=== PATIENT | female | born 1995 | race Caucasian/White ===

== ENCOUNTER 2017-01-09 16:45 | Emergency (ER) | payer OTHER ==
[~2017-01-09] VITALS: Ht 162.6 cm; Wt 51.9 kg
[~2017-01-09 16:45] MED LIST: CLON.5 PO; ZOLO100T PO
[2017-01-09 16:50] VITALS: BP 128/56; PULSE 91; RESP 16; TEMP 98.5; O2SAT 99
[2017-01-09] MEDS ORDERED: SODIUM CHLOR 0.9% 1000 ML INJ 1,000 ML IV SCH (18:28)
[2017-01-09] MEDS ORDERED: SODIUM CHLORIDE 0.9% FLUSH 10 ML FLUSH IV FLUSH PRN (18:30)
[2017-01-09 18:33] VITALS: BP 99/51; PULSE 79; RESP 16; O2SAT 97
--- NOTE | 2017-01-09 18:33 | PD ---
HPI Chief Complaint: abdominal pain Time Seen by Provider: 18:20 Travel History International Travel<30 days: No Contact w/Intl Traveler<30days: No History of Present Illness HPI Patient is a 21-year-old female with history of gastritis who presents to emergency room with complaints of right lower quadrant abdominal pain. Patient reports that her onset of pain was around midnight last night. Patient reports that pain has been constant, reports some nausea with no vomiting with her symptoms. Reports no fevers or chills, denies any constipation or diarrhea. She reports that she last had a bowel movement 2 days ago. Reports no history of ovarian cysts, denies any vaginal discharge or bleeding, denies any urinary urgency or frequency or hematuria. PFSH Past Medical History Anxiety: Yes (PANIC ATTACKS) Diminished Hearing: No Genitourinary: No Neurologic: No Respiratory: No Immunizations Current: Yes Past Surgical History Other Surgery: No Social History Alcohol Use: No Tobacco Use: No Substance Use: No Allergies-Medications (Allergen,Severity, Reaction): Coded Allergies: No Known Allergies (Verified , 08/28/16) Reported Meds & Prescriptions Reported Meds & Active Scripts Active No Active Prescriptions or Reported Medications Review of Systems General / Constitutional: No: Fever, Chills Eyes: No: Visual changes HENT: No: Headaches Cardiovascular: No: Chest Pain or Discomfort Respiratory: No: Shortness of Breath Gastrointestinal: Positive: Nausea, Abdominal Pain, No: Vomiting, Diarrhea, Constipation Genitourinary: No: Urgency, Frequency, Dysuria, Hematuria, Pelvic Pain Musculoskeletal: No: Pain Skin: No Rash Neurologic: No: Weakness Psychiatric: No: Depression Endocrine: No: Polydipsia Hematologic/Lymphatic: No: Easy Bruising Physical Exam Narrative GENERAL: NAD, nontoxic SKIN: Focused skin assessment warm/dry. HEAD: Atraumatic. Normocephalic. EYES: Pupils equal and round. No scleral icterus. No injection or drainage. ENT: No nasal bleeding or discharge. Mucous membranes pink and moist. NECK: Trachea midline. No JVD. CARDIOVASCULAR: Regular rate and rhythm. No murmur appreciated. RESPIRATORY: No accessory muscle use. Clear to auscultation. Breath sounds equal bilaterally. GASTROINTESTINAL: Abdomen soft, increased tenderness to rlq with no rebound or guarding : NO cmt or adnexal tenderness, scant white vaginal discharge MUSCULOSKELETAL: No obvious deformities. No clubbing. No cyanosis. No edema. NEUROLOGICAL: Awake and alert. No obvious cranial nerve deficits. Motor grossly within normal limits. Normal speech. PSYCHIATRIC: Appropriate mood and affect; insight and judgment normal. Data Data Last Documented VS Vital Signs Date Time Temp Pulse Resp B/P Pulse Ox O2 Delivery O2 Flow Rate FiO2 01/09/17 20:29 90 18 101/47 01/09/17 19:34 97.8 99 Room Air Orders Complete Blood Count With Diff (01/09/17 18:28) Comprehensive Metabolic Panel (01/09/17 18:28) Lipase (01/09/17 18:28) Prothrombin Time / Inr (Pt) (01/09/17 18:28) Act Partial Throm Time (Ptt) (01/09/17 18:28) Urinalysis - C+S If Indicated (01/09/17 18:28) Ct Abd/Pel W Iv Contrast(Rout) (01/09/17 18:28) Iv Access Insert/Monitor (01/09/17 18:28) Ecg Monitoring (01/09/17 18:28) Oximetry (01/09/17 18:28) Sodium Chlor 0.9% 1000 Ml Inj (Ns 1000 M (01/09/17 18:28) Sodium Chloride 0.9% Flush (Ns Flush) (01/09/17 18:30) Ed Urine Pregnancytest Poc (01/09/17 18:28) Urine Culture (01/09/17 19:20) Iohexol 350 Inj (Omnipaque 350 Inj) (01/09/17 19:54) Lorazepam Inj (Ativan Inj) (01/09/17 20:00) Ceftriaxone Inj (Rocephin Inj) (01/09/17 20:45) Gc And Chlamydia Pcr (01/09/17 20:34) Wet Prep Profile (01/09/17 20:34) Us Pelvis Comp W Doppler (01/09/17 20:34) Labs Laboratory Tests Test 01/09/17 01/09/17 18:48 19:20 White Blood Count 19.1 TH/MM3 Red Blood Count 5.47 MIL/MM3 Hemoglobin 15.1 GM/DL Hematocrit 45.3 % Mean Corpuscular Volume 82.8 FL Mean Corpuscular Hemoglobin 27.6 PG Mean Corpuscular Hemoglobin 33.3 % Concent Red Cell Distribution Width 12.9 % Platelet Count 279 TH/MM3 Mean Platelet Volume 9.4 FL Neutrophils (%) (Auto) 77.5 % Lymphocytes (%) (Auto) 13.8 % Monocytes (%) (Auto) 5.7 % Eosinophils (%) (Auto) 0.1 % Basophils (%) (Auto) 2.9 % Neutrophils # (Auto) 14.8 TH/MM3 Lymphocytes # (Auto) 2.6 TH/MM3 Monocytes # (Auto) 1.1 TH/MM3 Eosinophils # (Auto) 0.0 TH/MM3 Basophils # (Auto) 0.6 TH/MM3 CBC Comment DIFF FINAL Differential Comment Prothrombin Time 11.0 SEC Prothromb Time International 1.0 RATIO Ratio Activated Partial 21.9 SEC Thromboplast Time Urine Color YELLOW Urine Turbidity CLEAR Urine pH 6.0 Urine Specific [place] 1.015 Urine Protein NEG mg/dL Urine Glucose (UA) NEG mg/dL Urine Ketones 40 mg/dL Urine Occult Blood MOD Urine Nitrite NEG Urine Bilirubin NEG Urine Leukocyte Esterase MOD Urine RBC 15-19 /hpf Urine WBC 20-24 /hpf Urine Squamous Epithelial 6-8 /hpf Cells Urine Bacteria FEW /hpf Microscopic Urinalysis Comment CULTURE INDICATED Sodium Level 141 MEQ/L Potassium Level 3.6 MEQ/L Chloride Level 107 MEQ/L Carbon Dioxide Level 24.4 MEQ/L Anion Gap 10 MEQ/L Blood Urea Nitrogen 12 MG/DL Creatinine 0.96 MG/DL Estimat Glomerular Filtration 73 ML/MIN Rate Random Glucose 82 MG/DL Calcium Level 9.8 MG/DL Total Bilirubin 0.6 MG/DL Aspartate Amino Transf 21 U/L (AST/SGOT) Alanine Aminotransferase 20 U/L (ALT/SGPT) Alkaline Phosphatase 86 U/L Total Protein 8.0 GM/DL Albumin 4.2 GM/DL Lipase 162 U/L MDM Medical Decision Making Medical Screen Exam Complete: Yes Emergency Medical Condition: Yes Interpretation(s) Vital Signs Date Time Temp Pulse Resp B/P Pulse Ox O2 Delivery O2 Flow Rate FiO2 01/09/17 20:29 90 18 101/47 01/09/17 19:34 97.8 88 18 93/42 99 Room Air 01/09/17 18:49 97 01/09/17 18:33 79 16 99/51 97 01/09/17 16:50 98.5 91 16 128/56 99 Room Air Laboratory Tests Test 01/09/17 01/09/17 18:48 19:20 White Blood Count 19.1 TH/MM3 (4.0-11.0) Red Blood Count 5.47 MIL/MM3 (4.00-5.30) Hemoglobin 15.1 GM/DL (11.6-15.3) Hematocrit 45.3 % (35.0-46.0) Mean Corpuscular Volume 82.8 FL (80.0-100.0) Mean Corpuscular Hemoglobin 27.6 PG (27.0-34.0) Mean Corpuscular Hemoglobin 33.3 % Concent (32.0-36.0) Red Cell Distribution Width 12.9 % (11.6-17.2) Platelet Count 279 TH/MM3 (150-450) Mean Platelet Volume 9.4 FL (7.0-11.0) Neutrophils (%) (Auto) 77.5 % (16.0-70.0) Lymphocytes (%) (Auto) 13.8 % (9.0-44.0) Monocytes (%) (Auto) 5.7 % (0.0-8.0) Eosinophils (%) (Auto) 0.1 % (0.0-4.0) Basophils (%) (Auto) 2.9 % (0.0-2.0) Neutrophils # (Auto) 14.8 TH/MM3 (1.8-7.7) Lymphocytes # (Auto) 2.6 TH/MM3 (1.0-4.8) Monocytes # (Auto) 1.1 TH/MM3 (0-0.9) Eosinophils # (Auto) 0.0 TH/MM3 (0-0.4) Basophils # (Auto) 0.6 TH/MM3 (0-0.2) CBC Comment DIFF FINAL Differential Comment Prothrombin Time 11.0 SEC (9.8-11.6) Prothromb Time International 1.0 RATIO Ratio Activated Partial 21.9 SEC Thromboplast Time (24.3-30.1) Urine Color YELLOW (YELLW/STRAW) Urine Turbidity CLEAR (CLEAR) Urine pH 6.0 (5.0-8.5) Urine Specific [place] 1.015 (1.002-1.035) Urine Protein NEG mg/dL (NEG-TRACE) Urine Glucose (UA) NEG mg/dL (NEG) Urine Ketones 40 mg/dL (NEG) Urine Occult Blood MOD (NEG) Urine Nitrite NEG (NEG) Urine Bilirubin NEG (NEG) Urine Leukocyte Esterase MOD (NEG) Urine RBC 15-19 /hpf (0-3) Urine WBC 20-24 /hpf (0-5) Urine Squamous Epithelial 6-8 /hpf (0-5) Cells Urine Bacteria FEW /hpf (NONE) Microscopic Urinalysis Comment CULTURE INDICATED Sodium Level 141 MEQ/L (136-145) Potassium Level 3.6 MEQ/L (3.5-5.1) Chloride Level 107 MEQ/L (98-107) Carbon Dioxide Level 24.4 MEQ/L (21.0-32.0) Anion Gap 10 MEQ/L (5-15) Blood Urea Nitrogen 12 MG/DL (7-18) Creatinine 0.96 MG/DL (0.50-1.00) Estimat Glomerular Filtration 73 ML/MIN (>89) Rate Random Glucose 82 MG/DL (74-106) Calcium Level 9.8 MG/DL (8.5-10.1) Total Bilirubin 0.6 MG/DL (0.2-1.0) Aspartate Amino Transf 21 U/L (15-37) (AST/SGOT) Alanine Aminotransferase 20 U/L (10-53) (ALT/SGPT) Alkaline Phosphatase 86 U/L (45-117) Total Protein 8.0 GM/DL (6.4-8.2) Albumin 4.2 GM/DL (3.4-5.0) Lipase 162 U/L (73-393) Last Impressions Abdomen/Pelvis CT 01/09/17 [id number] Signed Impressions: Service Date/Time: Monday, January 09, 2017 19:40 - CONCLUSION: 1. Appendix not visualized. There is a mild right-sided colonic constipation. 2. Small amount of free fluid in the pelvis with questionable right adnexal cysts and corpus luteum cyst on the left. Claudio Polk MD Differential Diagnosis Differential includes ovarian cyst, ovarian torsion, appendicitis, gastroenteritis, UTI, cervicitis Narrative Course Patient is a 21-year-old female who presents to emergency room with complaints of abdominal pain. Since onset abdominal pain has been since midnight last night. Patient reports no fever or chills with symptoms, reports mild nausea. On exam, patient is tender to right lower quadrant, there is no rebound or guarding. Discussed need for lab work including CT of the abdomen pelvis to rule out appendicitis. Plan to give IV fluids, patient does not require any pain medications at this time. Plan to monitor patient Vital Signs Date Time Temp Pulse Resp B/P Pulse Ox O2 Delivery O2 Flow Rate FiO2 01/09/17 20:29 90 18 101/47 01/09/17 19:34 97.8 88 18 93/42 99 Room Air 01/09/17 18:49 97 01/09/17 18:33 79 16 99/51 97 01/09/17 16:50 98.5 91 16 128/56 99 Room Air Laboratory Tests Test 01/09/17 01/09/17 18:48 19:20 White Blood Count 19.1 TH/MM3 (4.0-11.0) Red Blood Count 5.47 MIL/MM3 (4.00-5.30) Hemoglobin 15.1 GM/DL (11.6-15.3) Hematocrit 45.3 % (35.0-46.0) Mean Corpuscular Volume 82.8 FL (80.0-100.0) Mean Corpuscular Hemoglobin 27.6 PG (27.0-34.0) Mean Corpuscular Hemoglobin 33.3 % Concent (32.0-36.0) Red Cell Distribution Width 12.9 % (11.6-17.2) Platelet Count 279 TH/MM3 (150-450) Mean Platelet Volume 9.4 FL (7.0-11.0) Neutrophils (%) (Auto) 77.5 % (16.0-70.0) Lymphocytes (%) (Auto) 13.8 % (9.0-44.0) Monocytes (%) (Auto) 5.7 % (0.0-8.0) Eosinophils (%) (Auto) 0.1 % (0.0-4.0) Basophils (%) (Auto) 2.9 % (0.0-2.0) Neutrophils # (Auto) 14.8 TH/MM3 (1.8-7.7) Lymphocytes # (Auto) 2.6 TH/MM3 (1.0-4.8) Monocytes # (Auto) 1.1 TH/MM3 (0-0.9) Eosinophils # (Auto) 0.0 TH/MM3 (0-0.4) Basophils # (Auto) 0.6 TH/MM3 (0-0.2) CBC Comment DIFF FINAL Differential Comment Prothrombin Time 11.0 SEC (9.8-11.6) Prothromb Time International 1.0 RATIO Ratio Activated Partial 21.9 SEC Thromboplast Time (24.3-30.1) Urine Color YELLOW (YELLW/STRAW) Urine Turbidity CLEAR (CLEAR) Urine pH 6.0 (5.0-8.5) Urine Specific [place] 1.015 (1.002-1.035) Urine Protein NEG mg/dL (NEG-TRACE) Urine Glucose (UA) NEG mg/dL (NEG) Urine Ketones 40 mg/dL (NEG) Urine Occult Blood MOD (NEG) Urine Nitrite NEG (NEG) Urine Bilirubin NEG (NEG) Urine Leukocyte Esterase MOD (NEG) Urine RBC 15-19 /hpf (0-3) Urine WBC 20-24 /hpf (0-5) Urine Squamous Epithelial 6-8 /hpf (0-5) Cells Urine Bacteria FEW /hpf (NONE) Microscopic Urinalysis Comment CULTURE INDICATED Sodium Level 141 MEQ/L (136-145) Potassium Level 3.6 MEQ/L (3.5-5.1) Chloride Level 107 MEQ/L (98-107) Carbon Dioxide Level 24.4 MEQ/L (21.0-32.0) Anion Gap 10 MEQ/L (5-15) Blood Urea Nitrogen 12 MG/DL (7-18) Creatinine 0.96 MG/DL (0.50-1.00) Estimat Glomerular Filtration 73 ML/MIN (>89) Rate Random Glucose 82 MG/DL (74-106) Calcium Level 9.8 MG/DL (8.5-10.1) Total Bilirubin 0.6 MG/DL (0.2-1.0) Aspartate Amino Transf 21 U/L (15-37) (AST/SGOT) Alanine Aminotransferase 20 U/L (10-53) (ALT/SGPT) Alkaline Phosphatase 86 U/L (45-117) Total Protein 8.0 GM/DL (6.4-8.2) Albumin 4.2 GM/DL (3.4-5.0) Lipase 162 U/L (73-393) Last Impressions Abdomen/Pelvis CT 01/09/17 [id number] Signed Impressions: Service Date/Time: Monday, January 09, 2017 19:40 - CONCLUSION: 1. Appendix not visualized. There is a mild right-sided colonic constipation. 2. Small amount of free fluid in the pelvis with questionable right adnexal cysts and corpus luteum cyst on the left. Claudio Polk MD Patient with a white blood cell count of 19.1, hemoglobin 15.1, hematocrit 45.3 , platelets 279, neutrophil % 77.5 sodium 141, chloride 107, bun 12, cr 0.96, ast 21, alt 20, lipase 162 UA: 40 ketones, mod occult blood, 15-19rbc, wbc 20-24, few bacteria - UC pending patient given IV dose of rocephin for treatment of uti ct of abd/pelvis: right sided colonic constipation - appendix could not be visualized, there is a small amount of free fluid in the pelvis with questionable right sided adnexal cysts and corpus luteum cyst on the left. CT reviewed with Dr. Polk (radiologist) - unable to visualize appendix or structures surrounding it pelvic US ordered to evaluate for ovarian cyst/torsion, will perform pelvic exam to r/o cervicitis. pelvic US: mild free fluid in the pelvis with a 2.8cm complex left ovarian cyst with small follicular cysts right ovary Call made to general surgery to review case, patient can follow up in office. Dr. Sapp does not feel that patient has appendicitis given that appendix could not be visualized and there is no inflamatory changes. Discussed that patient can return to ER if she develops worsening symptoms or fever/chills. She can also follow up in the office on Thursday if pain persist. Shared decision making was made with patient. Discussed with patient her options as I cannot rule out appendicitis. Discussed with patient that she can be observed in the hospital overnight for serial abdominal exams, discussed that if she is feeling better, she can be discharged home with precautions to return to the emergency room should she have return of pain worse develops any fevers or chills, she also follow with Dr. sapp in the office on Thursday. Patient reports that pain is still there but has improved during her ER visit. Patient wishes to be discharged to home with her mother. She will return to the emergency room if she should develop any signs of acute appendicitis, or if she develops any fevers or chills. I did review with patient and her mother in detail signs and symptoms of acute abdomen. She understands when to return to the emergency room. Patient feel comfortable going home today and will return to ER if she develops any symptoms as discussed Diagnosis Primary Impression: Abdominal pain Additional Impression: UTI (urinary tract infection) Admitting Information Admitting Physician Requests: Observation Referrals: Miguel Sapp MD Patient Instructions: General Instructions Departure Forms: Tests/Procedures, Work Release Enter return to work date: Jan 14, 2017 Additional Instructions: Please follow up with all cultures from today Please return to the emergency room should your abdominal pain return or if you develops any fevers or chills or worsening symptoms Please follow-up with general surgery on Thursday Please follow-up with your primary care doctor as soon as possible Return to the emergency room at any time Med/Other Pt SpecificInfo: Prescription(s) given Scripts Nitrofurantoin Monohydrate Macrocrystals (Macrobid)100 Mg [id number] Mg PO BID 10 Days Ref 0 Prov:Cara Mann DO 01/09/17 Disposition: 01 DISCHARGE HOME Condition: Stable Cara Mann DO Jan 09, 2017 18:33
[2017-01-09 18:49] VITALS: O2SAT 97
[2017-01-09 18:55] LABS: AUTOMATED NEUTROPHIL # 14.8 TH/MM3 (1.8-7.7); BASOPHIL # 0.6 TH/MM3 (0-0.2); BASOPHIL % 2.9 % (0.0-2.0); EOSINOPHIL % 0.1 % (0.0-4.0); HEMATOCRIT 45.3 % (35.0-46.0); HEMO FLAGS DIFF FINAL; LYMPH % 13.8 % (9.0-44.0); LYMPHOCYTE # 2.6 TH/MM3 (1.0-4.8); MEAN CELL VOLUME 82.8 FL (80.0-100.0); MEAN CORPUSCULAR HEMOGLOBIN 27.6 PG (27.0-34.0); MEAN CORPUSCULAR HGB CONC 33.3 % (32.0-36.0); MONO % 5.7 % (0.0-8.0); NEUT % 77.5 % (16.0-70.0); PLATELET COUNT 279 TH/MM3 (150-450); RED BLOOD COUNT 5.47 MIL/MM3 (4.00-5.30); RED CELL DISTRIBUTION WIDTH 12.9 % (11.6-17.2); WHITE BLOOD COUNT 19.1 TH/MM3 (4.0-11.0)
[2017-01-09 19:34] VITALS: BP 93/42; PULSE 88; RESP 18; TEMP 97.8; O2SAT 99
[2017-01-09 19:35] LABS: GLUCOSE,URINE NEG (NEG); KETONE, URINE 40 mg/dL (NEG); NITRITE,URINE NEG (NEG)
[2017-01-09 19:44] LABS: BLOOD, URINE MOD (NEG); CHLORIDE 107 MEQ/L (98-107); POTASSIUM 3.6 MEQ/L (3.5-5.1); SODIUM (NA) 141 MEQ/L (136-145)
[2017-01-09 19:45] LABS: RBC, URINE 15-19 /hpf (0-3); URINE COLOR YELLOW (YELLW/STRAW)
[2017-01-09 19:46] LABS: BACTERIA, URINE FEW /hpf; COMMENT (UR) CULTURE INDICATED; CULTURE IF INDICATED CULTURE INDICATED
[2017-01-09 19:48] LABS: ANION GAP 10 MEQ/L (5-15); BICARBONATE 24.4 MEQ/L (21.0-32.0); BLOOD UREA NITROGEN 12 MG/DL (7-18)
[2017-01-09 19:51] LABS: ALT (GPT) 20 U/L (10-53); APTT (PATIENT) 21.9 SEC (24.3-30.1); AST (GOT) 21 U/L (15-37); GLOMERULAR FILTRATION RATE 73 ML/MIN (>89)
[2017-01-09 19:53] LABS: TOTAL BILIRUBIN ADULT 0.6 MG/DL (0.2-1.0)
[2017-01-09 19:54] LABS: ALKALINE PHOSPHATASE 86 U/L (45-117)
[2017-01-09] MEDS ORDERED: IOHEXOL 350 MG/ML 10 ML VIAL (for RAD DIAG) IV ONE (19:54)
[2017-01-09] MEDS ORDERED: LORazepam 2 MG/ML VIAL IV PUSH ONE (20:00)
--- NOTE | 2017-01-09 20:19 | RADRPT ---
EXAM DATE/TIME: 01/09/2017 19:40 [facility] COMPARISON: No previous studies available for comparison. INDICATIONS : Right lower quadrant pain. IV CONTRAST: 95 cc Omnipaque 350 (iohexol) IV ORAL CONTRAST: No oral contrast ingested. RADIATION DOSE: 3.77 CTDIvol (mGy) MEDICAL HISTORY : None SURGICAL HISTORY : None. ENCOUNTER: Initial ACUITY: 1 day PAIN SCALE: 5/10 LOCATION: Right lower quadrant TECHNIQUE: Volumetric scanning of the abdomen and pelvis was performed. Using automated exposure control and ad justment of the mA and/or kV according to patient size, radiation dose was kept as low as reasonably achievable to obtain optimal diagnostic quality images. DICOM format image data is available electro nically for review and comparison. FINDINGS: Lung bases are clear. No acute findings in the liver, spleen, adrenals, kidneys or pancreas. No calci fied gallstones or biliary ductal dilatation. Within the pelvis there is a small amount of free fluid. There is some mild constipation right colon. The appendix is not clearly visualized. There is a probable enhancing corpus luteum cyst in the left adnexal region and probable 1.9 cm cyst right adnexa. Uterus unremarkable on CT. No acute bony abnor mality. CONCLUSION: 1. Appendix not visualized. There is a mild right-sided colonic constipation. 2. Small amount of free fluid in the pelvis with questionable right adnexal cysts and corpus luteum c yst on the left. Claudio Polk MD on January 09, 2017 at 20:13 Board Certified Radiologist. This report was verified electronically.
[2017-01-09 20:29] VITALS: BP 101/47; PULSE 90; RESP 18
[2017-01-09] MEDS ORDERED: cefTRIAXone INJ 1,000 MG in SODIUM CHLORIDE 0.9% INJ 100 ML IV ONE (20:45)
--- NOTE | 2017-01-09 22:57 | RADRPT ---
EXAM DATE/TIME: 01/09/2017 21:56 [facility] COMPARISON: No previous studies available for comparison. INDICATIONS : Pelvic pain. MEDICAL HISTORY : Anxiety. Gastritis. SURGICAL HISTORY : None. ENCOUNTER: Initial ACUITY: 2 days PAIN SCORE: 4/10 LOCATION: Bilateral pelvis. MEASUREMENTS: UTERUS: 7.6 x 5.2 x 3.5 cm ENDOMETRIAL STRIPE: 12 mm RIGHT OVARY: 4.3 x 3.1 x 2.1 cm LEFT OVARY: 5.7 x 2.5 x 1.7 cm FINDINGS: Endometrial stripe measures 12 mm. Uterus otherwise unremarkable. Right ovary within normal limits wi th trace free fluid adjacent to right ovary. Complex cyst left ovary measuring up to 2.8 cm in diamet er. CONCLUSION: 1. Mild free fluid in the pelvis. 2.8 cm complex left ovarian cyst. Small follicular cysts right ovar y. Claudio Polk MD on January 09, 2017 at 22:54 Board Certified Radiologist. This report was verified electronically.
[2017-01-09] MEDS ORDERED: MACR100C2 PO (23:20)
[2017-01-09 23:41] VITALS: BP 107/67; TEMP 98.7
[2017-01-10 11:46] LABS: CHLAMYDIA PCR NOT DETECTED (NOT DETECT); NEISSERIA PCR NOT DETECTED (NOT DETECT)
[2017-01-19] MEDS ORDERED: CLON.5 PO (15:27)
== END 2017-01-09 23:50 | disposition home or self-care (01) ==
LOC: PHED 16:45
DX: N39.0 Urinary tract infection, site not specified (principal); B96.89 Other specified bacterial agents as the cause of diseases classified elsewhere; N83.01 Follicular cyst of right ovary; N83.12 Corpus luteum cyst of left ovary; K59.00 Constipation, unspecified
CPT/HCPCS: 74177; 76856; 80053; 81001; 83690; 84703; 85025; 85610; 85730; 87086; 87210; 87491; 87591; 93975; 96361; 96365; 96375; 99285; J0696; J2060; J7030; Q9967

== ENCOUNTER 2017-01-13 08:08 | Emergency (ER) | payer OTHER ==
[2017-01-13] VITALS (7 sets, daily range): BP systolic 97–117; BP diastolic 49–62; PULSE 56–77; RESP 16; TEMP 98.3; O2SAT 98–100
[~2017-01-13] VITALS: Ht 162.6 cm; Wt 51.7 kg
[~2017-01-13 08:08] MED LIST changes: -CLON.5 PO; +MACR100C2 PO; -ZOLO100T PO
[2017-01-13] MEDS ORDERED: SODIUM CHLOR 0.9% 1000 ML INJ 1,000 ML IV SCH (08:25)
[2017-01-13] MEDS ORDERED: ONDANSETRON HCL 4 MG/2 ML VIAL IVP ONE (08:30)
[2017-01-13] MEDS: MORPHINE SULFATE 4 MG/ML INJ IV PUSH ONE ×2 (08:30→09:01)
--- NOTE | 2017-01-13 08:39 | PD ---
HPI Chief Complaint: Abdominal Pain Time Seen by Provider: 08:20 Travel History International Travel<30 days: No Contact w/Intl Traveler<30days: No History of Present Illness HPI Patient's 21-year-old female who returns to emergency room with complaints of right lower quadrant abdominal pain. Patient was seen by myself on Thursday night , with right lower quadrant abdominal pain. At that time, patient had a CT of abdomen and pelvis which could not identify an appendix, she also had a pelvic ultrasound ordered which showed mild free fluid in the pelvis with a 2.8 cm complex left ovarian cysts with small follicular cysts the right ovary. Patient was also found to have a white blood cell count of 19.1 as well as UTI. Given that the appendix could not be identified, case was reviewed with general surgeon who did not believe that patient had a diagnosis of appendicitis give no inflammatory changes in her right lower abdomen on CT. After shared decision making with patient, patient felt better and was discharged to home with strict instructions to return to the hospital should her symptoms return or if she developed any peritoneal signs. Patient reports that for the past 3 days, she has had intermittent pain to her right lower quadrant. Patient reports that pain is worse today with associated nausea and vomiting. Denies any fevers or chills. Reports that she tried coming to the emergency room last night but since it was "packed" was going to see if she could wait to be seen. PFSH Past Medical History Anxiety: Yes (PANIC ATTACKS) Diminished Hearing: No Genitourinary: No Neurologic: No Respiratory: No Immunizations Current: Yes Past Surgical History Other Surgery: No Social History Alcohol Use: No Tobacco Use: No Substance Use: No Allergies-Medications (Allergen,Severity, Reaction): Coded Allergies: No Known Allergies (Verified , 01/13/17) Reported Meds & Prescriptions Reported Meds & Active Scripts Active Macrobid (Nitrofurantoin Monoh/Nitrofur Macro) 100 Mg Cap 100 Mg PO BID 10 Days Review of Systems General / Constitutional: No: Fever Eyes: No: Visual changes HENT: No: Headaches Cardiovascular: No: Chest Pain or Discomfort Respiratory: No: Shortness of Breath Gastrointestinal: Positive: Nausea, Vomiting, Abdominal Pain, Loss of Appetite , No: Diarrhea, Constipation Genitourinary: No: Dysuria Musculoskeletal: No: Pain Skin: No Rash Neurologic: No: Weakness Psychiatric: No: Depression Endocrine: No: Polydipsia Hematologic/Lymphatic: No: Easy Bruising Physical Exam Narrative GENERAL: Moderate distress SKIN: Focused skin assessment warm/dry. HEAD: Atraumatic. Normocephalic. EYES: Pupils equal and round. No scleral icterus. No injection or drainage. ENT: No nasal bleeding or discharge. Mucous membranes pink and moist. NECK: Trachea midline. No JVD. CARDIOVASCULAR: Regular rate and rhythm. No murmur appreciated. RESPIRATORY: No accessory muscle use. Clear to auscultation. Breath sounds equal bilaterally. GASTROINTESTINAL: Abdomen soft, RLQ pain with guarding on exam MUSCULOSKELETAL: No obvious deformities. No clubbing. No cyanosis. No edema. NEUROLOGICAL: Awake and alert. No obvious cranial nerve deficits. Motor grossly within normal limits. Normal speech. PSYCHIATRIC: Appropriate mood and affect; insight and judgment normal. Data Data Last Documented VS Vital Signs Date Time Temp Pulse Resp B/P Pulse Ox O2 Delivery O2 Flow Rate FiO2 01/13/17 10:26 16 01/13/17 09:50 58 99/51 98 Room Air 01/13/17 08:14 98.3 Orders Complete Blood Count With Diff (01/13/17 08:25) Comprehensive Metabolic Panel (01/13/17 08:25) Lipase (01/13/17 08:25) Prothrombin Time / Inr (Pt) (01/13/17 08:25) Act Partial Throm Time (Ptt) (01/13/17 08:25) Urinalysis - C+S If Indicated (01/13/17 08:25) Ct Abd/Pel W Iv Contrast(Rout) (01/13/17 08:25) Iv Access Insert/Monitor (01/13/17 08:25) Ecg Monitoring (01/13/17 08:25) Oximetry (01/13/17 08:25) NPO (01/13/17 08:25) Morphine Inj (Morphine Inj) (01/13/17 08:30) Ondansetron Inj (Zofran Inj) (01/13/17 08:30) Sodium Chlor 0.9% 1000 Ml Inj (Ns 1000 M (01/13/17 08:25) Sodium Chloride 0.9% Flush (Ns Flush) (01/13/17 08:30) Ed Urine Pregnancytest Poc (01/13/17 08:25) Oral Contrast - Adult (01/13/17 08:46) Diatrizoate Liq (M[place] Liq) (01/13/17 08:56) Fentanyl Inj (Fentanyl Inj) (01/13/17 09:30) Sodium Chlor 0.9% 1000 Ml Inj (Ns 1000 M (01/13/17 09:30) Iohexol 350 Inj (Omnipaque 350 Inj) (01/13/17 10:30) Labs Laboratory Tests Test 01/13/17 01/13/17 08:45 09:00 White Blood Count 12.2 TH/MM3 Red Blood Count 4.75 MIL/MM3 Hemoglobin 13.2 GM/DL Hematocrit 40.5 % Mean Corpuscular Volume 85.3 FL Mean Corpuscular Hemoglobin 27.7 PG Mean Corpuscular Hemoglobin 32.4 % Concent Red Cell Distribution Width 12.7 % Platelet Count 268 TH/MM3 Mean Platelet Volume 9.3 FL Neutrophils (%) (Auto) 81.3 % Lymphocytes (%) (Auto) 13.1 % Monocytes (%) (Auto) 3.8 % Eosinophils (%) (Auto) 0.8 % Basophils (%) (Auto) 1.0 % Neutrophils # (Auto) 9.9 TH/MM3 Lymphocytes # (Auto) 1.6 TH/MM3 Monocytes # (Auto) 0.5 TH/MM3 Eosinophils # (Auto) 0.1 TH/MM3 Basophils # (Auto) 0.1 TH/MM3 CBC Comment DIFF FINAL Differential Comment Prothrombin Time 11.3 SEC Prothromb Time International 1.0 RATIO Ratio Activated Partial 24.3 SEC Thromboplast Time Sodium Level 139 MEQ/L Potassium Level 3.7 MEQ/L Chloride Level 105 MEQ/L Carbon Dioxide Level 26.0 MEQ/L Anion Gap 8 MEQ/L Blood Urea Nitrogen 11 MG/DL Creatinine 0.81 MG/DL Estimat Glomerular Filtration 89 ML/MIN Rate Random Glucose 115 MG/DL Calcium Level 9.8 MG/DL Total Bilirubin 0.4 MG/DL Aspartate Amino Transf 15 U/L (AST/SGOT) Alanine Aminotransferase 18 U/L (ALT/SGPT) Alkaline Phosphatase 78 U/L Total Protein 8.0 GM/DL Albumin 4.2 GM/DL Lipase 188 U/L Urine Collection Type CLEAN CATCH Urine Color YELLOW Urine Turbidity CLEAR Urine pH 5.5 Urine Specific [place] 1.020 Urine Protein TRACE mg/dL Urine Glucose (UA) NEG mg/dL Urine Ketones 40 mg/dL Urine Occult Blood SMALL Urine Nitrite NEG Urine Bilirubin NEG Urine Leukocyte Esterase NEG Urine RBC 4-9 /hpf Urine WBC 0-2 /hpf Urine Squamous Epithelial 0-5 /hpf Cells Microscopic Urinalysis Comment CULT NOT INDICATED Urine Collection Time 09:00 MDM Medical Decision Making Medical Screen Exam Complete: Yes Emergency Medical Condition: Yes Interpretation(s) Vital Signs Date Time Temp Pulse Resp B/P Pulse Ox O2 Delivery O2 Flow Rate FiO2 01/13/17 08:14 98.3 77 16 117/62 100 Room Air Differential Diagnosis Differential includes appendicitis, gastroenteritis, constipation Narrative Course Patient is a 21-year-old female who returns to emergency room with complaints of abdominal pain. Patient reports that she has been having right lower quadrant abdominal pain since night. Patient was seen in emergency room on Thursday and was evaluated and worked up for ovarian cysts versus appendicitis. Pelvic ultrasound ordered which showed mild free fluid in the pelvis with a 2.8 cm complex left ovarian cysts with small follicular cysts the right ovary She had a pelvic exam with g/c cultures sent which resulted in a neg test. Unfortunately, the appendix was not able to be seen on the CT of the abdomen pelvis, patient felt better and with shoulder decision making, it was decided that patient would be safe to be discharged to home with close follow up and with strict instructions to return to the emergency room should her symptoms return. Patient reports that pain is not getting better, in fact her pain is getting worse her right lower quadrant. Patient reports that pain has been intermittent in nature, reports that when she does have this pain, pain severe and usually resolves within a few minutes to hours. Patient reports increased nausea and vomiting with her symptoms, fevers or chills. Reports pain is localized to her back as well as her right lower quadrant. Given her symptoms and right lower quadrant pain, Plan to repeat the ct of the abdomen and pelvis with oral contrast. Will hydrate and provide relief of symptoms with morphine. Vital Signs Date Time Temp Pulse Resp B/P Pulse Ox O2 Delivery O2 Flow Rate FiO2 01/13/17 10:26 16 01/13/17 09:50 58 16 99/51 98 Room Air 01/13/17 09:35 56 16 105/61 98 Room Air 01/13/17 09:07 68 16 97/49 01/13/17 08:30 16 100 Room Air 01/13/17 08:30 16 01/13/17 08:14 98.3 77 16 117/62 100 Room Air CBC & BMP Diagram 01/13/17 08:45 Last Impressions Abdomen/Pelvis CT 01/13/17 0825 Signed Impressions: Service Date/Time: Friday, January 13, 2017 10:26 - CONCLUSION: 1. There has been interval development of mild hydronephrosis on the right. There are 2 punctate nonobstructing stones within the right collecting system both measuring approximately 1-2 mm. There is also small calcification within the low pelvis measuring approximately 3-4 mm which could potentially be a stone in the distal right ureter. It is very difficult to visualize the structures in the low pelvis due to the lack of intra-abdominal fat. A delayed KUB to document excretion would be of benefit. 2. There is free fluid within the pelvis and again noted is a 2 cm left ovarian cyst. Reno Norris MD All labs and all studies reviewed, patient reports that she is feeling much better at this time. Abdomen is soft, nontender, nondistended, no peritoneal signs. White blood cell count 12.2, which is improved from 3 days ago, chemistry shows normal BUN/creatinine, normal LFTs, UA with small blood, positive ketones, 4-[address] abdomen and pelvis now shows mild right-sided hydronephrosis on the right. There are 2 punctate stones in the right collecting system both measuring approximately 1-2 mm. There is also a small calcification within the low pelvis measuring approximately 3-4 mm which could potentially be a stone in the distal right ureter. Patient does report intermittent back pain radiating to her right lower quadrant, I do believe that her symptoms most likely due to a kidney stone rather than acute appendicitis. Patient reports strong family history for kidney stones. I discussed all labs and all studies with patient in detail, I reviewed all incidental findings. Given this patient's second time back to the hospital for her symptoms, I offered patient observation status for serial abdominal exams and for pain control. Patient would rather go home and follow-up with urologist as outpatient. Signs and symptoms of when to return to the emergency room was reviewed with patient detail. Patient will strain her urine, she will return to emergency with as needed. Signs and symptoms for acute abdomen again reviewed with patient in detail. Diagnosis Primary Impression: Abdominal pain Qualified Code: R10.31 - Right lower quadrant abdominal pain Additional Impressions: Kidney stone Hydronephrosis Qualified Code: N13.30 - Hydronephrosis, unspecified hydronephrosis type Hematuria Qualified Code: R31.9 - Hematuria, unspecified type Referrals: Nadir Waddell MD Patient Instructions: General Instructions, Narcotic given in the ED Additional Instructions: Please provide patient with a copy of her lab work and studies at discharge Please strain your urine, bring your kidney stone to the urologist for follow up on pathology of kidney stone Please return to the emergency room if symptoms worsen or progress or if you develop any fevers or chills Please follow up with your primary care doctor Do not drive or operate heavy machinery while taking narcotic pain medications. Med/Other Pt SpecificInfo: Prescription(s) given Scripts Tamsulosin (Flomax)0.4 Mg Cap0.4 Mg PO HS #10 CAP Ref 0 Prov:Cara Mann DO 01/13/17 Ondansetron (Zofran)4 Mg Tab4 Mg PO Q6HR PRN (NAUSEA OR VOMITING) #20 TAB Ref 0 Prov:Cara Mann DO 01/13/17 Oxycodone-Acetaminophen (Percocet)5-325 mg Tab1 Tab PO Q6H PRN (PAIN) #15 TAB Ref 0 Prov:Cara Mann DO 01/13/17 Ibuprofen 600 Mg [id number] Mg PO Q6H PRN (Pain/Inflammation) #40 TAB Ref 0 Prov:Cara Mann DO 01/13/17 Disposition: 01 DISCHARGE HOME Condition: Stable Cara Mann DO Jan 13, 2017 08:39
[2017-01-13] MEDS ORDERED: DIATRIZOATE MEGLUM/DIATRIZOATE SOD 9 ML CUP ONE (08:56)
[2017-01-13 09:01] LABS: AUTOMATED NEUTROPHIL # 9.9 TH/MM3 (1.8-7.7); BASOPHIL # 0.1 TH/MM3 (0-0.2); EOSINOPHIL # 0.1 TH/MM3 (0-0.4); EOSINOPHIL % 0.8 % (0.0-4.0); HEMATOCRIT 40.5 % (35.0-46.0); LYMPH % 13.1 % (9.0-44.0); LYMPHOCYTE # 1.6 TH/MM3 (1.0-4.8); MEAN CELL VOLUME 85.3 FL (80.0-100.0); MEAN CORPUSCULAR HEMOGLOBIN 27.7 PG (27.0-34.0); MEAN CORPUSCULAR HGB CONC 32.4 % (32.0-36.0); MONO % 3.8 % (0.0-8.0); NEUT % 81.3 % (16.0-70.0); PLATELET COUNT 268 TH/MM3 (150-450); RED BLOOD COUNT 4.75 MIL/MM3 (4.00-5.30); RED CELL DISTRIBUTION WIDTH 12.7 % (11.6-17.2); WHITE BLOOD COUNT 12.2 TH/MM3 (4.0-11.0)
[2017-01-13] MEDS: SODIUM CHLORIDE 0.9% FLUSH 10 ML FLUSH IV FLUSH PRN ×3 (09:02→11:24)
[2017-01-13 09:04] LABS: CHLORIDE 105 MEQ/L (98-107); POTASSIUM 3.7 MEQ/L (3.5-5.1); SODIUM (NA) 139 MEQ/L (136-145)
[2017-01-13 09:05] LABS: HEMO FLAGS DIFF FINAL
[2017-01-13 09:08] LABS: APTT (PATIENT) 24.3 SEC (24.3-30.1); PROTHROMBIN TIME - PATIENT 11.3 SEC (9.8-11.6)
[2017-01-13 09:09] LABS: ANION GAP 8 MEQ/L (5-15); BLOOD UREA NITROGEN 11 MG/DL (7-18)
[2017-01-13 09:12] LABS: ALT (GPT) 18 U/L (10-53); AST (GOT) 15 U/L (15-37); GLOMERULAR FILTRATION RATE 89 ML/MIN (>89)
[2017-01-13 09:12] LABS: BLOOD, URINE SMALL (NEG); GLUCOSE,URINE NEG (NEG); KETONE, URINE 40 mg/dL (NEG); NITRITE,URINE NEG (NEG); PH, URINE 5.5 (5.0-8.5)
[2017-01-13 09:14] LABS: TOTAL BILIRUBIN ADULT 0.4 MG/DL (0.2-1.0)
[2017-01-13 09:15] LABS: ALKALINE PHOSPHATASE 78 U/L (45-117)
[2017-01-13 09:22] LABS: METHOD OF COLLECTION CLEAN CATCH; URINE COLOR YELLOW (YELLW/STRAW)
[2017-01-13 09:23] LABS: COMMENT (UR) CULT NOT INDICATED; CULTURE IF INDICATED CULT NOT INDICATED; SQUAMOUS EPITHELIAL CELL URINE 0-5 /hpf (0-5); WBC, URINE 0-2 /hpf (0-5)
[2017-01-13] MEDS ORDERED: SODIUM CHLOR 0.9% 1000 ML INJ 1,000 ML IV ONE (09:30)
[2017-01-13] MEDS ORDERED: IOHEXOL 350 MG/ML 10 ML VIAL (for RAD DIAG) IV ONE (10:30)
--- NOTE | 2017-01-13 10:51 | RADRPT ---
EXAM DATE/TIME: 01/13/2017 10:26 [facility] COMPARISON: CT ABDOMEN & PELVIS W CONTRAST, January 09, 2017, 19:40. INDICATIONS : Right lower quadrant pain radiating to back with ntermittent nausea and vomiting. IV CONTRAST: 85 cc Omnipaque 350 (iohexol) IV ORAL CONTRAST: Prescribed oral contrast ingested. RADIATION DOSE: 4.63 CTDIvol (mGy) MEDICAL HISTORY : None SURGICAL HISTORY : None. ENCOUNTER: Initial ACUITY: 4 - 6 days PAIN SCALE: 5/10 LOCATION: Right lower quadrant TECHNIQUE: Volumetric scanning of the abdomen and pelvis was performed. Using automated exposure control and ad justment of the mA and/or kV according to patient size, radiation dose was kept as low as reasonably achievable to obtain optimal diagnostic quality images. DICOM format image data is available electro nically for review and comparison. FINDINGS: The limited portion of the lung base visualized is clear. The appearance of the liver, spleen, pancreas, adrenal glands and left kidney is within normal limits . Examination of the right kidney demonstrates mild hydronephrotic change. This was not present on the patient's previous examination. There are 2 punctate nonobstructing stones in the right kidney both m easuring approximately 1-2 mm. The proximal right ureter appears mildly dilated. Distally, the ureter s not visualized. There is a single 3 mm calcification seen in the right pelvis. I believe this proba kelly represents a phlebolith however, due to the lack of intra-abdominal fat it is possible this is in the distal right ureter. A delayed KUB to assess contrast excretion would be warranted. There is no free fluid within the upper abdomen. No free intraperitoneal air is identified. There is a moderate amount of stool within the colon. The appendix is not definitively visualized within the p valerie. Imaging through the pelvis demonstrates free fluid within the pelvis. Note is made of a 2 cm cyst wit hin the left ovary. The overall amount of free fluid and appearance of the pelvis is stable compared to the patient's previous examination. No iliac or inguinal adenopathy is seen. CONCLUSION: 1. There has been interval development of mild hydronephrosis on the right. There are 2 punctate nono bstructing stones within the right collecting system both measuring approximately 1-2 mm. There is al so small calcification within the low pelvis measuring approximately 3-4 mm which could potentially b e a stone in the distal right ureter. It is very difficult to visualize the structures in the low pel vis due to the lack of intra-abdominal fat. A delayed KUB to document excretion would be of benefit. 2. There is free fluid within the pelvis and again noted is a 2 cm left ovarian cyst. Reno Norris MD on January 13, 2017 at 10:35 Board Certified Radiologist. This report was verified electronically.
[2017-01-13] MEDS ORDERED: ZOFR4TAB PO (11:10)
[2017-01-13] MEDS ORDERED: PERC5TAB12 PO (11:10)
[2017-01-13] MEDS ORDERED: TAMS5CAP PO (11:10)
[2017-01-13] MEDS ORDERED: IBUP-232 PO (11:10)
[2017-01-13] MEDS ORDERED: KETOROLAC TROMETHAMINE 30 MG/ML (IVP) VIAL IV PUSH ONE (11:15)
[2017-01-19] MEDS ORDERED: CLON.5 PO (15:27)
== END 2017-01-13 12:17 | disposition home or self-care (01) ==
LOC: PHED 08:08
DX: N13.2 Hydronephrosis with renal and ureteral calculous obstruction (principal); N83.202 Unspecified ovarian cyst, left side; R31.9 Hematuria, unspecified
CPT/HCPCS: 74177; 80053; 81001; 83690; 84703; 85025; 85610; 85730; 96361; 96374; 96375; 99285; J1885; J2405; J3010; J7030; Q9963; Q9967; J2270